=== PATIENT | male | born 1955 ===

== ENCOUNTER 2017-04-25 12:17 | Emergency (ER) | payer OTHER ==
[2017-04-25 12:28] VITALS: BP 130/76
--- NOTE | 2017-04-25 12:57 | UC ---
Lower Extremity/Ankle HPI - HPI Summary HPI Summary: left great toe nail is black and tip of right great toe nail is black as well, no injury, no pain, fevers - History of Current Complaint Chief Complaint: UCLowerExtremity Stated Complaint: BLACKNESS ON BIG TOES Time Seen by Provider: 04/25/17 12:47 Hx Obtained From: Patient Onset/Duration: Sudden Onset, Lasting Days, Still Present Severity Initially: Mild Severity Currently: Mild Pain Intensity: 0 - does have some neuropathy Aggravating Factor(s): Nothing Alleviating Factor(s): Nothing Able to Bear Weight: Yes - Allergies/Home Medications Allergies/Adverse Reactions: Allergies Allergy/AdvReac Type Severity Reaction Status Date / Time Bee Venom Allergy Anaphylatic Verified 04/25/17 12:28 Shock Home Medications: Home Medications Insulin Glargine [Basaglar Kwikpen] 100 unit SC 04/25/17 [History] Losartan/HCTZ 100/25 (NF) [Hyzaar 100/25 (NF)] 1 PO DAILY 04/25/17 [History] Metoprolol Succinate [Metoprolol Succinate ER] 25 mg PO DAILY 04/25/17 [History Confirmed 04/25/17] Pantoprazole Sodium 40 mg PO DAILY 04/25/17 [History Confirmed 04/25/17] Simvastatin [Zocor 40 MG (NF)] 40 mg PO QPM 04/25/17 [History Confirmed 04/25/17 ] PMH/Surg Hx/FS Hx/Imm Hx Previously Healthy: No Endocrine History: Diabetes Cardiovascular History: Cardiac Disease, Hypertension GI/ History: Gastroesophageal Reflux - Surgical History Surgical History: Yes Surgery Procedure, Year, and Place: APPENDECTOMY, LEFT 4TH FINGER SX, LEFT ELBOW SX, LEFT ROTATOR CUFF AND BICEP REPAIR - Family History Known Family History: Positive: None - Social History Occupation: Employed Full-time Lives: With Family Alcohol Use: Occasionally Substance Use Type: None Smoking Status (MU): Current Every Day Smoker Review of Systems Constitutional: Negative Skin: Negative Eyes: Negative ENT: Negative Respiratory: Negative Cardiovascular: Negative Gastrointestinal: Negative Genitourinary: Negative Motor: Negative Neurovascular: Negative Musculoskeletal: Negative Neurological: Negative Psychological: Negative Is Patient Immunocompromised?: No All Other Systems Reviewed And Are Negative: Yes Physical Exam Triage Information Reviewed: Yes Appearance: Well-Appearing, No Pain Distress, Well-Nourished Vital Signs: Initial Vital Signs Temp 98.3 F 04/25/17 12:23 Pulse 92 04/25/17 12:23 Resp 16 04/25/17 12:23 BP 130/76 04/25/17 12:23 Pulse Ox 99 04/25/17 12:23 Vital Signs Reviewed: Yes Eye Exam: Normal Eyes: Positive: Conjunctiva Clear ENT Exam: Normal ENT: Positive: Normal ENT inspection, Hearing grossly normal, Pharynx normal. Negative: Nasal drainage, Trismus, Muffled voice, Hoarse voice, Sinus tenderness Dental Exam: Normal Neck exam: Normal Neck: Positive: Supple, Nontender, No Lymphadenopathy Respiratory Exam: Normal Respiratory: Positive: Chest non-tender, Lungs clear, Normal breath sounds, No respiratory distress, No accessory muscle use Cardiovascular Exam: Normal Cardiovascular: Positive: RRR, No Murmur, Pulses Normal, Brisk Capillary Refill Musculoskeletal Exam: Normal Musculoskeletal: Positive: Strength Intact, ROM Intact, No Edema Neurological Exam: Normal Neurological: Positive: Alert, Muscle Tone Normal Psychological Exam: Normal Psychological: Positive: Normal Response To Family Skin Exam: Normal Lower Extremity Course/Dx - Course Course Of Treatment: follow with podiatry this week, nicotine cesassation information follow this week - Differential Dx/Diagnosis Provider Diagnoses: Melanoma vs hematoma vs fungal infection both great toes, nicotine dependent Discharge - Discharge Plan Condition: Stable Disposition: HOME Patient Education Materials: How to Stop Smoking (ED) Referrals: Zbigniew Andrade DPM [Doctor of Podiatric Medicine] - As Soon As Possible Herminia Smith DPM [Doctor of Podiatric Medicine] - As Soon As Possible Apple Samano NP [Primary Care Provider] - 5 Days Chuckie Monzon DPM [Doctor of Podiatric Medicine] - As Soon As Possible Additional Instructions: The atypical coloring under your toe nails can be due to many conditions that we do not treat in the urgent care. It is important that you are followed up in the next week to assure a proper diagnosis and treatment
== END 2017-04-25 13:11 | disposition home or self-care (01) ==
LOC: UCEAST 12:17
DX: L60.8 Other nail disorders (principal); F17.210 Nicotine dependence, cigarettes, uncomplicated; E11.9 Type 2 diabetes mellitus without complications; Z79.4 Long term (current) use of insulin; I10 Essential (primary) hypertension; K21.9 Gastro-esophageal reflux disease without esophagitis; I51.9 Heart disease, unspecified; Z72.89 Other problems related to lifestyle
CPT/HCPCS: 99202; G0463